=== PATIENT | male | born 1950 | race Caucasian/White ===

== ENCOUNTER 2023-04-20 20:13 | Emergency (ER) | payer OTHER ==
[2023-04-20] MEDS ORDERED: Acetaminophen 325 MG Tab PO ONE (20:54)
[2023-04-20 21:01] LABS: BASOPHILS PERCENT AUTO 0.3 % (0.2-1.2); EOSINOPHILS ABSOLUTE AUTO 0.2 x10^3/uL (0.0-0.5); EOSINOPHILS PERCENT AUTO 1.6 % (0.0-4.0); HEMATOCRIT 37.7 % (40.0-52.0); HEMOGLOBIN 12.2 g/dL (14.0-18.0); IMMATURE GRAN ABSOLUTE AUTO 0.02 x10^3/uL (0.00-0.07); LYMPHOCYTES ABSOLUTE AUTO 0.7 x10^3/uL (1.0-4.8); LYMPHOCYTES PERCENT AUTO 4.4 % (25.0-50.0); MEAN CORPUSCULAR HGB CONC 32.4 g/dL (32.0-36.0); MEAN CORPUSCULAR VOLUME 89.5 fL (78.0-93.0); MONOCYTES ABSOLUTE AUTO 0.9 x10^3/uL (0.0-0.8); MONOCYTES PERCENT AUTO 6.1 % (2.0-11.0); NEUTROPHILS ABSOLUTE AUTO 13.2 x10^3/uL (1.8-7.7); NEUTROPHILS PERCENT AUTO 87.5 % (50.0-80.0); PLATELET COUNT,PLT 231 x10^3/uL (130-400); RED BLOOD CELL COUNT 4.21 x10^6/uL (4.5-6.0); WHITE BLOOD CELL COUNT,WBC 15.1 x10^3/uL (4.0-10.0)
[2023-04-20 21:13] LABS: APPEARANCE,URINE CLEAR (CLEAR); BILIRUBIN,URINE NEGATIVE (NEGATIVE); COLOR,URINE YELLOW (YELLOW); GLUCOSE,URINE 500 mg/dL (NEGATIVE); KETONES,URINE NEGATIVE (NEGATIVE); LEUKOCYTE ESTERASE,URINE NEGATIVE (NEGATIVE); NITRITE,URINE NEGATIVE (NEGATIVE); OCCULT BLOOD,URINE NEGATIVE (NEGATIVE); PROTEIN,URINE 30 mg/dL (NEGATIVE); UROBILINOGEN,URINE 0.2 EU/dL (0.2)
[2023-04-20 21:13] LABS: BLOOD UREA NITROGEN,BUN 44 mg/dL (7-18); CALCIUM 9.3 mg/dL (8.5-10.1); CARBON DIOXIDE,CO2 28 mmol/L (21-32); CHLORIDE,CL 103 mmol/L (98-107); CREATININE 2.3 mg/dL (0.70-1.30); GLUCOSE RANDOM 153 mg/dL (70-99); POTASSIUM,K 4.5 mmol/L (3.5-5.1); SODIUM,NA 141 mmol/L (136-145)
[2023-04-20 21:22] LABS: LACTIC ACID 0.6 mmol/L (0.4-2.0)
[2023-04-20 21:24] LABS: ANION GAP 14.5 mmol/L (5-15); ESTIMATED GFR 29 mL/min (>=60)
[2023-04-20 21:25] LABS: BACTERIA,URINE NOT SEEN /HPF (NOT SEEN); HYALINE CASTS,URINE RARE; MUCUS,URINE NOT SEEN /LPF (NOT SEEN); RBC,URINE 0-5 /HPF (NOT SEEN); SQUAMOUS EPITHELIAL CELLS,UR RARE /HPF (NOT SEEN); WBC,URINE 0-5 /HPF (NOT SEEN)
[2023-04-20] MEDS ORDERED: Ondansetron 4 MG/2 ML SDV IVPUSH ONE (21:27)
[2023-04-20] MEDS ORDERED: Sodium Chloride 0.9% 500 ML IV ONE (21:28)
[2023-04-20] MEDS ORDERED: cefTRIAXone 1 GM Vial IVPUSH ONE (22:00)
[2023-04-20] MEDS ORDERED: Azithromycin 500 MG in Sodium Chloride 0.9% 250 ML IV ONE (22:00)
[2023-04-20 22:23] LABS: INR 1.5 (2.0-3.5); PROTHROMBIN TIME 15.5 SEC (9.5-12.2)
[2023-04-20] MEDS ORDERED: Sodium Chloride 0.9% 1,000 ML IV SCH (22:40)
[2023-04-20] MEDS ORDERED: Sodium Chloride 0.9% 1,000 ML IV ONE (22:58)
== END 2023-04-20 23:35 | disposition short-term general hospital (02) ==
LOC: VM.ED 20:13
DX: J18.9 Pneumonia, unspecified organism (principal); R11.2 Nausea with vomiting, unspecified; Z88.1 Allergy status to other antibiotic agents; Z20.822 Contact with and (suspected) exposure to COVID-19
CPT/HCPCS: 36415; 71045; 80048; 81001; 82947; 83605; 85025; 85610; 87040; 94760; 96361; 96365; 96375; 99282-25; 99284; A9270-GY; J0456; J0696; J2405; J7030; J7050; U0002